=== PATIENT | male | born 1985 | race African-American/Black ===

== ENCOUNTER 2019-10-19 08:20 | Emergency (ER) | payer MEDICAID ==
[~2019-10-19] VITALS: Ht 188 cm; Wt 131.8 kg
[2019-10-19 08:25] VITALS: BP 130/97
== END 2019-10-19 09:46 | disposition home or self-care (01) ==
LOC: EMS 08:22
DX: S50.01XA Contusion of right elbow, initial encounter (principal); V28.4XXA Motorcycle driver injured in noncollision transport accident in traffic accident, initial encounter; Y93.89 Activity, other specified; Y92.89 Other specified places as the place of occurrence of the external cause; Y99.8 Other external cause status